=== PATIENT | female | born 1995 | race African-American/Black ===

== ENCOUNTER 2017-04-18 08:58 | Emergency (ER) | payer SELFPAY ==
[~2017-04-18] VITALS: Ht 165.1 cm; Wt 45.0 kg
[2017-04-18 09:25] VITALS: BP 107/66
[2017-04-18] MEDS ORDERED: ACETAMINOPHEN 325MG TABLET PO ONE (10:00)
== END 2017-04-18 11:28 | disposition home or self-care (01) ==
LOC: ER 11:15
DX: K02.9 Dental caries, unspecified (principal); K08.89 Other specified disorders of teeth and supporting structures; R01.1 Cardiac murmur, unspecified
CPT/HCPCS: 99282

== ENCOUNTER 2017-07-14 13:24 | Emergency (ER) | payer MEDICAID ==
[~2017-07-14] VITALS: Ht 165.1 cm; Wt 45.0 kg
[2017-07-14] MEDS ORDERED: IBUPROFEN 600MG TABLET PO ONE (16:15)
[2017-07-14 17:54] VITALS: BP 115/74
== END 2017-07-14 17:57 | disposition home or self-care (01) ==
LOC: ER 13:35
DX: S86.912A Strain of unspecified muscle(s) and tendon(s) at lower leg level, left leg, initial encounter (principal); F12.10 Cannabis abuse, uncomplicated; R07.81 Pleurodynia; V49.88XA Car occupant (driver) (passenger) injured in other specified transport accidents, initial encounter; Y93.89 Activity, other specified; Y92.410 Unspecified street and highway as the place of occurrence of the external cause; Y99.8 Other external cause status
CPT/HCPCS: 99283; Z7610

== ENCOUNTER 2018-07-09 12:04 | Emergency (ER) | payer MEDICAID ==
[~2018-07-09] VITALS: Ht 165.1 cm; Wt 48.0 kg
[2018-07-09] MEDS ORDERED: ONDANSETRON HCL 4MG/2ML INJ IM ONE (13:00)
[2018-07-09 13:47] LABS: CLARITY URINE CLEAR (CLEAR); COLOR URINE YELLOW (YELLOW); KETONES URINE 2+ (NEGATIVE); LEUKOCYTE ESTERASE URINE 1+ (NEGATIVE); NITRITE URINE NEGATIVE (NEGATIVE); OCCULT BLOOD URINE NEGATIVE (NEGATIVE); PH URINE 6.5 (4.5-8.0); PROTEIN URINE NEGATIVE (NEGATIVE); SPECIFIC GRAVITY URINE 1.023 (1.005-1.030); UROBILINOGEN URINE 0.2 E.U./dL (0.2-1.0)
[2018-07-09 15:06] LABS: CHLORIDE 105 mEq/L (98-107)
[2018-07-09 15:11] LABS: BASOPHILS % 0.4 % (0.0-2.0); EOSINOPHILS % 0.1 % (0.0-5.0); HEMATOCRIT. 39.5 % (36.0-48.0); HEMOGLOBIN. 12.9 g/dL (12.0-16.0); LYMPHOCYTES % 11.4 % (20.0-50.0); MEAN CORPUSCULAR HEMOGLOBIN 28.1 pg (28.0-32.0); MEAN CORPUSCULAR VOLUME 86.2 fL (81.0-99.0); MEAN PLATELET VOLUME 8.6 fl (7.4-10.4); MONOCYTES % 7.5 % (2.0-8.0); NEUTROPHILS % 80.6 % (40.0-76.0); PLATELET 248 x1000/uL (130-400); RED BLOOD CELL COUNT 4.58 mill/uL (4.2-5.4); RED CELL DISTRIBUTION WIDTH 17.4 % (11.6-14.6)
[2018-07-09 16:54] VITALS: BP 118/61
== END 2018-07-09 16:56 | disposition home or self-care (01) ==
LOC: ER 12:04
DX: O26.891 Other specified pregnancy related conditions, first trimester (principal); R11.2 Nausea with vomiting, unspecified; Z3A.01 Less than 8 weeks gestation of pregnancy
CPT/HCPCS: 36415; 76801; 80053; 81003; 81025; 84702; 85025; 96372; 99284; J2405

== ENCOUNTER 2019-02-19 20:32 | Emergency (ER) | payer MEDICAID ==
[~2019-02-19] VITALS: Ht 165.1 cm; Wt 60.0 kg
[2019-02-19] MEDS ORDERED: ACETAMINOPHEN 325MG TABLET PO ONE (21:15)
[2019-02-19] MEDS ORDERED: CEPHALEXIN 250MG CAPSULE PO ONE (21:15)
[2019-02-19 21:38] VITALS: BP 119/72
== END 2019-02-19 21:38 | disposition home or self-care (01) ==
LOC: ER 20:32
DX: H70.93 Unspecified mastoiditis, bilateral (principal); F17.200 Nicotine dependence, unspecified, uncomplicated; F12.10 Cannabis abuse, uncomplicated
CPT/HCPCS: 99283; Z7610

== ENCOUNTER 2019-07-17 16:55 | Inpatient (IN) | payer MEDICAID ==
[~2019-07-17] VITALS: Ht 160 cm; Wt 44.9 kg
[2019-07-17] MEDS ORDERED: SODIUM CHLORIDE 0.9% 1,000 ML IV ONE ×2 (18:11→19:51)
[2019-07-17] MEDS ORDERED: ONDANSETRON HCL 4MG/2ML INJ IV ONE (18:15)
[2019-07-17] MEDS ORDERED: FAMOTIDINE 20MG/2ML VIAL IV ONE (18:15)
[2019-07-17 18:43] LABS: HEMATOCRIT. 36.3 % (36.0-48.0); HEMOGLOBIN. 11.9 g/dL (12.0-16.0); MEAN CORPUSCULAR HEMOGLOBIN 27.5 pg (28.0-32.0); MEAN CORPUSCULAR VOLUME 84.2 fL (81.0-99.0); MEAN PLATELET VOLUME 8.4 fl (7.4-10.4); PLATELET 283 x1000/uL (130-400); RED BLOOD CELL COUNT 4.31 mill/uL (4.2-5.4); RED CELL DISTRIBUTION WIDTH 17.7 % (11.6-14.6)
[2019-07-17 18:49] LABS: CHLORIDE 103 mEq/L (98-107)
[2019-07-17 18:58] LABS: PLATELET ESTIMATE NORMAL
[2019-07-17 19:14] LABS: B-HCG QUANTITATIVE 30153 mIU/mL (<3)
[2019-07-17] MEDS ORDERED: CEFAZOLIN 1000MG PREMIX 50 ML IV ONE (20:30)
[2019-07-17 20:57] LABS: CLARITY URINE CLEAR (CLEAR); COLOR URINE YELLOW (YELLOW); KETONES URINE 2+ (NEGATIVE); LEUKOCYTE ESTERASE URINE TRACE (NEGATIVE); NITRITE URINE POSITIVE (NEGATIVE); OCCULT BLOOD URINE NEGATIVE (NEGATIVE); PROTEIN URINE NEGATIVE (NEGATIVE); SPECIFIC GRAVITY URINE 1.011 (1.005-1.030); UROBILINOGEN URINE 0.2 E.U./dL (0.2-1.0)
[2019-07-17 21:13] LABS: *AMPHETAMINES SCREEN URINE NEGATIVE (NEGATIVE); *BARBITURATES SCREEN URINE NEGATIVE (NEGATIVE); *BENZODIAZEPINES SCREEN URINE NEGATIVE (NEGATIVE); *COCAINE SCREEN URINE NEGATIVE (NEGATIVE); METHADONE URINE SCREEN NEGATIVE (NEGATIVE); OPIATES URINE SCREEN NEGATIVE (NEGATIVE); PHENCYCLIDINE URINE SCREEN NEGATIVE (NEGATIVE)
[2019-07-17] MEDS ORDERED: ROCURONIUM BROMIDE 10MG/ML VIAL 5ML IV ONE (21:13)
[2019-07-17] MEDS ORDERED: SUCCINYLCHOLINE CHLORIDE 200MG/10ML IV ONE (21:13)
[2019-07-17] MEDS ORDERED: LIDOCAINE HCL 1% 20ML VIAL (Pyxis) INJ ONE (21:13)
[2019-07-17] MEDS ORDERED: MIDAZOLAM HCL 2 MG/2 ML VIAL ONE (21:13)
[2019-07-17] MEDS ORDERED: PROPOFOL 200MG/20ML VIAL IV ONE (21:13)
[2019-07-17] MEDS ORDERED: FENTANYL CITRATE/PF 50MCG/ML 2ML VIAL ONE (21:13)
[2019-07-17] MEDS ORDERED: PHENYLEPHRINE HCL 10 MG/ML 1ML (IV VIAL) IV ONE (21:17)
[2019-07-17] MEDS ORDERED: ONDANSETRON HCL 4MG/2ML INJ ONE (21:19)
[2019-07-17] MEDS ORDERED: DEXAMETHASONE 4MG/ML 1ML VIAL ONE (21:19)
[2019-07-17 21:21] LABS: CANNABINOID URINE SCREEN PRESUMTIVE POSITIVE (NEGATIVE)
[2019-07-17 21:25] LABS: INR 1.1; PARTIAL THROMBOPLASTIN TIME 25.6 sec (23.4-31.0)
[2019-07-17] MEDS ORDERED: CEFAZOLIN 2000MG in DEXTROSE 5% WATER 100ML IV NR (21:30)
[2019-07-17] MEDS ORDERED: CEFAZOLIN 2000MG PREMIX 100 ML IV ONE (21:30)
[2019-07-17] MEDS ORDERED: HYDROMORPHONE HCL/PF 2MG/ML CPJ IV PRN (21:30)
[2019-07-17] MEDS ORDERED: ONDANSETRON HCL 4MG/2ML INJ IV PRN ×3 (21:30→22:45)
[2019-07-17] MEDS ORDERED: CEFAZOLIN SODIUM 1000MG/VIAL ONE (21:53)
[2019-07-17] MEDS ORDERED: METOCLOPRAMIDE HCL 10MG/2ML VIAL ONE (22:15)
[2019-07-17] MEDS ORDERED: KETOROLAC 30MG/ML VIAL ONE (22:19)
[2019-07-17] MEDS ORDERED: NEOSTIGMINE METHYLSULFATE 1MG/ML 10 ML VIAL ONE (22:21)
[2019-07-17] MEDS ORDERED: GLYCOPYRROLATE 0.2 MG/ML 2ML VIAL ONE (22:21)
[2019-07-17] MEDS ORDERED: KETOROLAC 30MG/ML VIAL IV SCH (22:45)
[2019-07-17] MEDS ORDERED: BISACODYL 10MG SUPP PR PRN (22:45)
[2019-07-17] MEDS ORDERED: DIPHENHYDRAMINE 25MG CAPSULE PO PRN (22:45)
[2019-07-17] MEDS: FENTANYL CITRATE/PF 50MCG/ML 2ML VIAL IV PRN ×2 (22:53→22:59)
[2019-07-18] VITALS (7 sets, daily range): BP systolic 94–108; BP diastolic 48–62
[2019-07-18] MEDS: HYDROCODONE/ACETAMINOPHEN 5/325MG TABLET PO PRN ×2 (00:45→20:19)
[2019-07-18] MEDS: DEXT 5%/LACTATED RINGERS 1,000 ML IV SCH ×2 (02:55→08:15)
[2019-07-18 07:07] LABS: HEMATOCRIT. 28.4 % (36.0-48.0); HEMOGLOBIN. 9.4 g/dL (12.0-16.0); MEAN CORPUSCULAR VOLUME 84.7 fL (81.0-99.0); MEAN PLATELET VOLUME 8.5 fl (7.4-10.4); PLATELET 226 x1000/uL (130-400); RED BLOOD CELL COUNT 3.35 mill/uL (4.2-5.4); RED CELL DISTRIBUTION WIDTH 17.6 % (11.6-14.6)
[2019-07-18] MEDS: SIMETHICONE 80MG TABLET CHEW PO SCH ×4 (08:15→20:34)
[2019-07-18] MEDS: IBUPROFEN 800MG TABLET PO PRN (08:15)
[2019-07-18] MEDS ORDERED: INFLUENZA VIRUS VACCINE(AFLURIA) 0.5ML SYR IM ONE (09:00)
[2019-07-18] MEDS ORDERED: TETANUS, DIPHTHERIA, PERTUSSIS VAC/PF 0.5ML (>7YR OLD) IM ONE (09:00)
[2019-07-18] MEDS: IBUPROFEN 400MG TABLET PO PRN (13:13)
[2019-07-18] MEDS: SODIUM CHLORIDE 0.9% 1,000 ML IV SCH ×2 (13:19→14:00)
[2019-07-18 15:28] LABS: PLATELET ESTIMATE NORMAL
[2019-07-18] MEDS ORDERED: DOCUSATE SODIUM 100MG CAPSULE PO SCH (21:00)
[2019-07-19] VITALS: BP 108/59
[2019-07-19] MEDS: HYDROCODONE/ACETAMINOPHEN 5/325MG TABLET PO PRN ×3 (02:52→16:46)
[2019-07-19 04:00] VITALS: BP 96/56
[2019-07-19] MEDS ORDERED: IBUP-2030 PO (05:57)
[2019-07-19] MEDS ORDERED: OXYC-100 MT (05:57)
[2019-07-19] MEDS: SIMETHICONE 80MG TABLET CHEW PO SCH ×3 (07:19→16:46)
[2019-07-19] MEDS: IBUPROFEN 400MG TABLET PO PRN (07:19)
[2019-07-19] MEDS: SODIUM CHLORIDE 0.9% 1,000 ML IV SCH (07:19)
[2019-07-19 08:00] VITALS: BP 99/64
[2019-07-19 09:49] VITALS: BP 100/54
[2019-07-19 12:00] VITALS: BP 100/59
[2019-07-19] MEDS: IBUPROFEN 800MG TABLET PO PRN (13:06)
[2019-07-19 16:46] VITALS: BP 100/54
== END 2019-07-19 19:20 | disposition home or self-care (01) | DRG 545 ==
LOC: ER 17:46 → EDBEDREQTM 20:41 → EDBEDREQ 20:41 → ENRESERV 21:36 → 6EST 23:45
PROVIDERS: ADMIT Specialist; ATTEND Family Medicine
PROC: 0UB50ZZ Excision of Right Fallopian Tube, Open Approach (ICD-10-PCS; principal; 2019-07-17)
DX: O00.101 Right tubal pregnancy without intrauterine pregnancy (principal); O08.89 Other complications following an ectopic and molar pregnancy; F12.10 Cannabis abuse, uncomplicated
CPT/HCPCS: 36415; 76801; 76857; 80053; 80305; 81003; 84702; 85025; 86850; 86900; 86920; 88305; 90686; 90715; 93005; 97161; 99291; J0330; J0690; J1100; J1170; J1885; J2250; J2370; J2405; J2704; J2710; J2765; J3010; J3490; J7030; J7060

== ENCOUNTER 2022-12-07 13:11 | Emergency (ER) | payer MEDICAID ==
[~2022-12-07] VITALS: Ht 165.1 cm; Wt 50.0 kg
[~2022-12-07 13:11] MED LIST: IBUP-2030 PO; OXYC-100 MT
[2022-12-07 13:17] VITALS: BP 112/72
[2022-12-07] MEDS ORDERED: HYDR-3735 MT (14:58)
[2022-12-07] MEDS: ALPRAZOLAM 0.25 MG TABLET PO ONE ×2 (15:19→15:57)
== END 2022-12-07 15:58 | disposition home or self-care (01) ==
LOC: ER 13:11
DX: F41.9 Anxiety disorder, unspecified (principal); F32.A Depression, unspecified; F12.10 Cannabis abuse, uncomplicated
CPT/HCPCS: 81025; 99283

== ENCOUNTER 2024-01-11 23:21 | Emergency (ER) | payer MEDICAID ==
[~2024-01-11] VITALS: Ht 165.1 cm; Wt 50.0 kg
[~2024-01-11 23:21] MED LIST changes: +HYDR-3735 MT
[2024-01-11 23:31] VITALS: BP 124/68; PULSE 104; RESP 16; TEMP 98.6; O2SAT 99
== END 2024-01-12 03:14 | disposition left against medical advice (07) ==
LOC: ER 23:21
DX: M54.50 Low back pain, unspecified (principal); Z53.21 Procedure and treatment not carried out due to patient leaving prior to being seen by health care provider

== ENCOUNTER 2024-03-29 15:31 | Emergency (ER) | payer MEDICAID ==
[~2024-03-29] VITALS: Ht 167.6 cm; Wt 50.0 kg
[2024-03-29 15:36] VITALS: BP 97/59; TEMP 97.9; O2SAT 100
[2024-03-29 15:40] VITALS: PULSE 96; RESP 16
[2024-03-29] MEDS ORDERED: IBUP-2029 MT (17:07)
== END 2024-03-29 17:29 | disposition home or self-care (01) ==
LOC: ER 15:31
DX: R07.89 Other chest pain (principal); F43.9 Reaction to severe stress, unspecified; F12.10 Cannabis abuse, uncomplicated; F41.9 Anxiety disorder, unspecified; Z98.890 Other specified postprocedural states
CPT/HCPCS: 71045; 93005; 99283

== ENCOUNTER 2025-07-25 08:35 | Inpatient (IN) | payer MEDICAID ==
[~2025-07-25] VITALS: Ht 165.1 cm; Wt 60.0 kg
[~2025-07-25 08:35] MED LIST changes: +IBUP-1455 MT
[2025-07-25 09:11] LABS: BASOPHILS % 0.5 % (0.0-2.0); EOSINOPHILS % 0.2 % (0.0-5.0); HEMATOCRIT. 38.6 % (36.0-48.0); HEMOGLOBIN. 12.4 g/dL (12.0-16.0); LYMPHOCYTES % 26.6 % (20.0-50.0); MEAN PLATELET VOLUME 8.5 fl (7.4-10.4); MONOCYTES % 5.9 % (2.0-8.0); NEUTROPHILS % 66.8 % (40.0-76.0); PLATELET 232 x1000/uL (130-400); RED BLOOD CELL COUNT 4.60 mill/uL (4.2-5.4); RED CELL DISTRIBUTION WIDTH 17.1 % (11.6-14.6)
[2025-07-25 09:39] LABS: CREATININE 0.9 mg/dL (0.6-1.0); UREA NITROGEN BLOOD 6 mg/dL (9-23)
[2025-07-25 09:40] LABS: TROPONIN I HIGH SENSITIVITY < 4 ng/L (3.0-34)
[2025-07-25 11:05] LABS: CLARITY URINE CLEAR (CLEAR); COLOR URINE YELLOW (YELLOW); GLUCOSE URINE NEGATIVE (NEGATIVE); KETONES URINE NEGATIVE (NEGATIVE); LEUKOCYTE ESTERASE URINE TRACE (NEGATIVE); NITRITE URINE NEGATIVE (NEGATIVE); OCCULT BLOOD URINE 3+ (NEGATIVE); PH URINE 6.0 (4.5-8.0); PROTEIN URINE TRACE (NEGATIVE); SPECIFIC GRAVITY URINE 1.019 (1.005-1.030); UROBILINOGEN URINE 0.2 E.U./dL (0.2-1.0)
[2025-07-25 11:15] LABS: MUCUS URINE 2+ /lpf (< = 2+); SQUAMOUS EPITHELIAL CELL URINE 2+ /lpf (RARE/1+)
[2025-07-25 11:17] LABS: BACTERIA URINE TRACE
[2025-07-25] MEDS: KETOROLAC 15MG/ML VIAL IM ONE (12:43)
[2025-07-25] MEDS: KETOROLAC 15MG/ML VIAL IV ONE (12:48)
[2025-07-25] MEDS ORDERED: ACETAMINOPHEN 325MG TABLET PO PRN (13:15)
[2025-07-25] MEDS ORDERED: ONDANSETRON HCL 4MG/2ML INJ IV PRN (13:15)
[2025-07-25] MEDS: PANTOPRAZOLE SODIUM 40 MG/VIAL IV SCH (14:00)
[2025-07-25] MEDS: SODIUM CHLORIDE 0.45% 1,000 ML IV SCH (15:28)
[2025-07-25 15:29] LABS: TRIGLYCERIDE 109 mg/dL (0-150)
[2025-07-25 15:30] LABS: LDL CHOLESTEROL 147 mg/dL (5-100)
[2025-07-25 15:35] LABS: FOLIC ACID (FOLATE) SERUM 12.56 ng/mL (>5.38); VITAMIN B12 SERUM 499 pg/mL (211-911)
[2025-07-25 16:00] VITALS: BP 121/48; PULSE 61; RESP 17; TEMP 36.9; O2SAT 97
[2025-07-25] MEDS: ACETAMINOPHEN 325MG TABLET PO PRN (17:58)
[2025-07-25 18:21] VITALS: BP 106/65; PULSE 58; RESP 18; TEMP 37.3076
[2025-07-25] MEDS ORDERED: SENNOSIDES/DOCUSATE SOD 8.6/50MG TABLET PO PRN (18:30)
[2025-07-25 20:00] VITALS: BP 108/85; PULSE 68; RESP 18; TEMP 37.2; O2SAT 100
[2025-07-25] MEDS: KETOROLAC 15MG/ML VIAL IV NR (21:37)
[2025-07-25] MEDS: ASCORBIC ACID 250 MG TABLET PO SCH (21:39)
[2025-07-25 23:24] LABS: UCG SCREEN NEGATIVE
[2025-07-25 23:25] LABS: UCG KIT EXPIRATION DATE 04/08/2027; UCG KIT LOT# 994099
[2025-07-26] VITALS (7 sets, daily range): BP systolic 95–125; BP diastolic 49–89; PULSE 64–89; RESP 15–20; TEMP 36–38.2; O2SAT 98–100
[2025-07-26] MEDS ORDERED: FERROUS SULFATE 325MG TABLET PO SCH (08:10)
[2025-07-26 08:33] LABS: BASOPHILS % 0.4 % (0.0-2.0); EOSINOPHILS % 0.9 % (0.0-5.0); HEMATOCRIT. 38.0 % (36.0-48.0); HEMOGLOBIN. 12.1 g/dL (12.0-16.0); LYMPHOCYTES % 38.2 % (20.0-50.0); MEAN PLATELET VOLUME 9.2 fl (7.4-10.4); MONOCYTES % 7.9 % (2.0-8.0); NEUTROPHILS % 52.6 % (40.0-76.0); PLATELET 217 x1000/uL (130-400); RED BLOOD CELL COUNT 4.58 mill/uL (4.2-5.4); RED CELL DISTRIBUTION WIDTH 17.5 % (11.6-14.6)
[2025-07-26 08:37] LABS: CREATINE KINASE MB FRACTION < 0.5 ng/mL (0.5-3.6)
[2025-07-26 08:40] LABS: UREA NITROGEN BLOOD 6 mg/dL (9-23)
[2025-07-26 08:41] LABS: T4 FREE 1.25 ng/dL (0.89-1.76)
[2025-07-26] MEDS: IPRATROPIUM/ALBUTEROL 0.5-3(2.5)MG/3ML NEB HHN PRN (08:56)
[2025-07-26 09:23] LABS: CREATININE 0.3 mg/dL (0.6-1.0)
[2025-07-26] MEDS: FERROUS SULFATE 300MG/5ML UDC PO SCH (12:30)
[2025-07-26] MEDS: LORAZEPAM 0.5MG TABLET PO PRN (12:30)
[2025-07-26] MEDS: KETOROLAC 10MG TABLET PO PRN (12:32)
[2025-07-27] VITALS: BP 100/48; PULSE 61; RESP 20; TEMP 37.2; O2SAT 100
[2025-07-27 04:00] VITALS: BP 101/56; PULSE 66; RESP 19; TEMP 36.3; O2SAT 100
[2025-07-27 07:55] LABS: BASOPHILS % 0.4 % (0.0-2.0); EOSINOPHILS % 0.7 % (0.0-5.0); HEMATOCRIT. 38.8 % (36.0-48.0); HEMOGLOBIN. 12.4 g/dL (12.0-16.0); LYMPHOCYTES % 30.2 % (20.0-50.0); MEAN PLATELET VOLUME 9.0 fl (7.4-10.4); MONOCYTES % 9.8 % (2.0-8.0); NEUTROPHILS % 58.9 % (40.0-76.0); PLATELET 200 x1000/uL (130-400); RED BLOOD CELL COUNT 4.65 mill/uL (4.2-5.4); RED CELL DISTRIBUTION WIDTH 16.9 % (11.6-14.6)
[2025-07-27 08:00] VITALS: BP 104/54; PULSE 69; RESP 15; TEMP 35.9; O2SAT 100
[2025-07-27 08:42] LABS: CREATININE 0.7 mg/dL (0.6-1.0); UREA NITROGEN BLOOD 6 mg/dL (9-23)
[2025-07-27] MEDS ORDERED: ALPR0.25 MT (10:39)
[2025-07-27 11:05] VITALS: BP 104/54; PULSE 69; RESP 15; TEMP 96.6
[2025-07-27 11:07] VITALS: PULSE 74; RESP 22; O2SAT 98
[2025-07-27] MEDS ORDERED: HYDROXYZINE 25MG TABLET PO PRN (12:00)
[2025-07-27] MEDS ORDERED: FLUOXETINE HCL 10 MG CAPSULE PO SCH (12:00)
== END 2025-07-27 14:25 | disposition home or self-care (01) | DRG 145 ==
LOC: ER 08:35 → 7WST 10:56 → EDBEDREQTM 10:57 → EDBEDREQ 10:57 → ENRESERV 16:37
PROVIDERS: ADMIT Hospitalist; ATTEND Hospitalist
PROC: GZ56ZZZ Individual Psychotherapy, Supportive (ICD-10-PCS; principal; 2025-07-27)
DX: J40 Bronchitis, not specified as acute or chronic (principal); F33.1 Major depressive disorder, recurrent, moderate; D50.0 Iron deficiency anemia secondary to blood loss (chronic); F12.10 Cannabis abuse, uncomplicated; E78.5 Hyperlipidemia, unspecified; D25.0 Submucous leiomyoma of uterus; F17.210 Nicotine dependence, cigarettes, uncomplicated; J06.9 Acute upper respiratory infection, unspecified; N84.0 Polyp of corpus uteri; F41.9 Anxiety disorder, unspecified; Z79.899 Other long term (current) drug therapy; Z87.59 Personal history of other complications of pregnancy, childbirth and the puerperium; Z63.4 Disappearance and death of family member
CPT/HCPCS: 36415; 71045; 76830; 76856; 80048; 80061; 81003; 81025; 82550; 82553; 82607; 82728; 82746; 83540; 83550; 84439; 84443; 84484; 85025; 93005; 94640; 94664; 99285; A4606; J1885; J2470